=== PATIENT | female | born 1930 | race Caucasian/White ===

== ENCOUNTER 2016-03-15 14:21 | Emergency (ER) | payer MEDICARE, SELFPAY ==
[2016-03-15 14:23] VITALS: BMI 25.9
[2016-03-15] MEDS ORDERED: DILTIAZEM 25 MG/5 ML VIAL IV ONE (14:45)
--- NOTE | 2016-03-15 14:54 | EDPRACDOC ---
- General Information Information Source: Patient Mode of Arrival: Car - History of Present Illness Onset: 1100 HPI: Pt states sudden onset palpitations, numbness in chest, sob at 11 am today. Denies fever, vision changes, headache, cough, congestion, abd pain, n/v, changes in bowel or bladder, rash, leg swelling. Pt states hx afib but cant take meds due to low bp. Symptoms Started: Reports: Suddenly Relevant History: Reports: Arrhythmia Heart Rate (bpm): 129 Pulse is: Irregular, Rapid Worsens with: Reports: Nothing Associated signs & symptoms: Reports: Dyspnea Chest Pain Location: Reports: Substernal, Left Chest Pain Quality: Reports: Tightness Pain Radiation: Reports: Neck <Sheila Vance - Last Filed: 03/15/16 16:50> <Rose Marie Wilder - Last Filed: 03/15/16 17:17> - General Information Chief Complaint: Chest Pain Stated Complaint: NUMB FROM UPPER ABD TO UP IN CHEST & INTO ARMS Time Seen by Provider: 03/15/16 14:44 Home Medications: Home Medications CITALOPRAM (anti-depressant) [Celexa] 10 mg PO DAILY 04/11/12 Calcium Carb/Vit D3/Minerals [Calcium 600 + D Tablet] 1 tab PO DAILY 04/11/12 Ezetimibe [Zetia] 10 mg PO QHS 04/11/12 Zolpidem Tartrate [Ambien] 10 mg PO QHS 04/11/12 Rivaroxaban [Xarelto] 20 mg PO DAILY 12/20/13 Ergocalciferol (Vitamin D2) [Vitamin D] 400 mg PO BID 08/14/15 Esomeprazole Magnesium [Nexium] 40 mg PO DAILY 08/14/15 Metoclopramide HCl [Reglan] 5 mg PO BID 03/15/16 Nitrofurantoin [Macrodantin] 50 mg PO QHS 03/15/16 Allergies/Adverse Reactions: Allergies Allergy/AdvReac Type Severity Reaction Status Date / Time atorvastatin calcium Allergy Nausea/Vomi Verified 03/15/16 14:30 [From Lipitor] ting fenofibrate nanocrystallized Allergy Nausea/Vomi Verified 03/15/16 14:30 [From Tricor] ting fenofibrate,micronized Allergy Nausea/Vomi Verified 03/15/16 14:30 [From Tricor] ting Penicillins Allergy Rash-Genera Verified 03/15/16 14:30 lized pravastatin sodium Allergy Nausea/Vomi Verified 03/15/16 14:30 [From Pravachol] ting prednisone Allergy Nausea/Vomi Verified 03/15/16 14:30 ting rosuvastatin calcium Allergy Nausea/Vomi Verified 03/15/16 14:30 [From Crestor] ting simvastatin [From Zocor] Allergy Nausea/Vomi Verified 03/15/16 14:30 ting warfarin sodium Allergy Nausea/Vomi Verified 03/15/16 14:30 [From Coumadin] ting ED Past Medical History - History Reviewed Yes Nurses notes reviewed and agree except as marked - Patient Medical History Neurological History: Reports: Cerebrovascular Accident (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 Denies: Cancer Surgical History: Reports: Cardiac Catheterization, Tonsillectomy/Adnoidectomy - Family Medical History Reports: Hypertension, Cancer (Brother), Stroke (Mother, father), Cardiac Disorders (Brother) - Social Medical History Smoking Status: Never smoker Social History: Denies: Substance Use Disorder ETOH: None Substance Abuse: None <Sheila Vance - Last Filed: 03/15/16 16:50> EDM Review of Systems - Review of Systems Constitutional: No Symptoms Reported. negative: Fever, Chills, Weakness, Fatigue, Loss of Appetite Eyes: No Symptoms Reported. negative: Redness, Blurred Vision, Double Vision, Discharge, Pain, Light Sensitive, Photophobia Ears: No Symptoms Reported. negative: Pain, Hearing Loss, Drainage, Ear Pulling Throat: No Symptoms Reported. negative: Pain, Swelling Nose: No Symptoms Reported. negative: Congestion, Bleeding, Discharge, Injection, Swelling, Deformity, Ecchymosis, Tender, Abrasion, Laceration Mouth: No Symptoms Reported. negative: Pain, Drooling Respiratory: Shortness of Breath. negative: No Symptoms Reported, Barky Cough, Brassy Cough, Cough, Hemoptysis, Wheezing Cardiovascular: Chest Pain, Palpitations Gastrointestinal: No Symptoms Reported. negative: Pain, Constipation, Nausea, Vomiting, Diarrhea, Melena, Formula Intolerance Genitourinary: No Symptoms Reported. negative: Dysuria, Hematuria, Frequency, Discharge, Bleeding, Testicular Pain, Neurological: Numbness. negative: No Symptoms Reported, Dizziness, Gait Difficulty, Headache, Seizure, Speech Difficulty, Weakness Musculoskeletal: No Symptoms Reported. negative: Neck, Chestwall, Ribs, Back, Shoulder, Arm, Elbow, Forearm, Wrist, Hand, Pelvis, Hip, Femur, Knee, Leg, Ankle , Foot Integumentary: No Symptoms Reported. negative: Itching, Rash, Bruising, Wound Allergic/Immunologic: No Symptoms Reported. negative: Hives, Itching Hematologic: No Symptoms Reported. negative: Lymphadenopathy, Easy Bruising, Easy Bleeding Psychiatric: No Symptoms Reported. negative: Anxiety, Depression, Hallucinations, Insomnia, Suicidal <VanceSheila - Last Filed: 03/15/16 16:50> - Physical Exam Constitutional: Alert Oriented to: Time, Person, Place Last recorded Vital Signs: Last Vital Signs Temp 97.6 F 03/15/16 14:21 Pulse 98 03/15/16 14:21 Resp 18 03/15/16 14:21 BP 129/67 03/15/16 14:21 Pulse Ox 95 03/15/16 14:21 Oxygen Pulse Oxygen Saturation 95 O2 Device Room Air Oxygen Flow Rate Fraction of Inspired Oxygen ( FIO2) - HEENT Head: Normal ( normocephalic) Eye Exam: Normal (PERRL, EOMI, Sclera white) Oropharynx: Normal (Pharynx:Moist without exudate,Gums-no swelling) Tympanic Membrane: Normal ENT EAC: Normal Nose: No Symptoms Reported (septum midline) Neck: Normal (FROM, trachea at midline) - Respiratory/Cardiovascular Respiratory: Normal - CTA (BBS clear to auscultation without adventitious sounds ) Cardiovascular: Tachycardia, Irregular - GI Auscultation: Normal (NABS) Palpation: Normal (Soft,No rebound or guarding, non distended) Tenderness: Non tender - Musculoskeletal Back: Normal (Non-Tender) Extremities: Normal (Normal tone, Pulses 2+ No cyanosis or edema, FROM) - Integumentary Skin: Normal, Warm, Dry Lymphatics: Normal (no adenopathy) - Neurologic Memory Impaired: Normal Motor Function: Normal (Normal tone, Pulses 2+ No cyanosis or edema, FROM) Mood Description: Normal Perception: Normal <Sheila Vance - Last Filed: 03/15/16 16:50> - Physical Exam Last recorded Vital Signs: Last Vital Signs Temp 97.6 F 03/15/16 14:21 Pulse 129 H 03/15/16 16:51 Resp 16 03/15/16 15:03 BP 158/72 03/15/16 15:03 Pulse Ox 93 03/15/16 15:03 Oxygen Pulse Oxygen Saturation 93 O2 Device Room Air Oxygen Flow Rate Fraction of Inspired Oxygen ( FIO2) <Rose Marie Wilder - Last Filed: 03/15/16 17:17> - Differential Diagnosis Atrial fibrillation, Sinus tachycardia, Electrolyte disorder - Re-evaluation Re-evaluation 1 Re-evaluation Time: 16:50 (pt states palpitation improved but mild chest pressure and sob. ) - Results 03/15/16 14:41 03/15/16 14:41 03/15/16 16:41 Laboratory Results - last 24 hr 03/15/16 03/15/16 03/15/16 14:41 14:41 14:41 WBC 7.7 RBC 5.18 Hgb 14.6 Hct 44.3 MCV 85 MCH 28.2 MCHC 33.0 RDW 15.8 H Plt Count 235 MPV 8.0 Neut % (Auto) 62.4 Lymph % (Auto) 26.5 [place] % (Auto) 9.5 Eos % (Auto) 1.3 Baso % (Auto) 0.3 Absolute Neuts (auto) 4.77 Absolute Lymphs (auto) 2.00 PT 14.0 H INR 1.4 APTT 38.5 H Sodium 140 Potassium 4.1 Chloride 107 Carbon Dioxide 25 Anion Gap 12 BUN 21 H Creatinine 0.90 Estimated GFR (MDRD) 59 L Glucose 93 Calculated Osmolality 272 Calcium 9.0 Corrected Calcium 9.4 Total Bilirubin 0.7 AST 21 ALT 25 Alkaline Phosphatase 65 Troponin I < 0.01 [id number] Pept 4730 H Total Protein 6.8 Albumin 3.6 - EKG EKG #1 Initial EKG Time: 14:34 Rate: bpm: 129 [place]: LAD Rhythm: Afib (with RVR), PVCs Block: None ST: Nonsp Comparison: 01/01/16 - Diagnostic Imaging Chest Image interpreted by: Radiologist IMPRESSION: 1. No acute findings. 2. Stable hiatal hernia, moderate to large in size. 3. Stable scarring/fibrosis within each lung, bibasilar predominant. No new lung findings. No evidence of pneumonia. <Sheila Vance Cata - Last Filed: 03/15/16 16:50> - Re-evaluation Re-evaluation 3 Re-evaluation Time: 17:15 (PT REQUEST TRANSFER TO HIS CARD GROUP) HIGH VARIABILITY OF HR:50 TO 120. NO SIGNIF CHANGE IN BP. REC OBS. PT REQUEST HER CARD GROUP. - Results 03/15/16 14:41 03/15/16 14:41 WBC 7.7 xk/uL (3.8-10.8) 03/15/16 14:41 RBC 5.18 xM/uL (4.20-5.40) 03/15/16 14:41 Hgb 14.6 g/dL (12.0-16.0) 03/15/16 14:41 Hct 44.3 % (36-47) 03/15/16 14:41 MCV 85 fL (81-99) 03/15/16 14:41 MCH 28.2 pg (27-32) 03/15/16 14:41 MCHC 33.0 g/dl (33-36) 03/15/16 14:41 RDW 15.8 % (11.5-14.5) H 03/15/16 14:41 Plt Count 235 xk/uL (130-400) 03/15/16 14:41 MPV 8.0 fL (7.4-10.4) 03/15/16 14:41 Neut % (Auto) 62.4 % (45-76) 03/15/16 14:41 Lymph % (Auto) 26.5 % (17-44) 03/15/16 14:41 [place] % (Auto) 9.5 % (3-10) 03/15/16 14:41 Eos % (Auto) 1.3 % (0-5) 03/15/16 14:41 Baso % (Auto) 0.3 % (0-2) 03/15/16 14:41 Absolute Neuts (auto) 4.77 xk/uL (1.7-8.2) 03/15/16 14:41 Absolute Lymphs (auto) 2.00 xk/uL (0.65-4.75) 03/15/16 14:41 PT 14.0 SEC (9.2-11.2) H 03/15/16 14:41 INR 1.4 03/15/16 14:41 APTT 38.5 SEC (22-35) H 03/15/16 14:41 Sodium 140 mEq/L (137-146) 03/15/16 14:41 Potassium 4.1 mEq/L (3.5-5.1) 03/15/16 14:41 Chloride 107 mEq/L (98-107) 03/15/16 14:41 Carbon Dioxide 25 mMOL/L (22-33) 03/15/16 14:41 Anion Gap 12 mEq/L (8-16) 03/15/16 14:41 BUN 21 MG/DL (7-17) H 03/15/16 14:41 Creatinine 0.90 MG/DL (0.52-1.04) 03/15/16 14:41 Estimated GFR (MDRD) 59 mL/min (>=60) L 03/15/16 14:41 Glucose 93 mg/dL (70-99) 03/15/16 14:41 Calculated Osmolality 272 MOs/Kg (270-290) 03/15/16 14:41 Calcium 9.0 MG/DL (8.4-10.2) 03/15/16 14:41 Corrected Calcium 9.4 MG/DL (8.4-10.2) 03/15/16 14:41 Total Bilirubin 0.7 MG/DL (0.2-1.3) 03/15/16 14:41 AST 21 IU/L (14-36) 03/15/16 14:41 ALT 25 IU/L (9-52) 03/15/16 14:41 Alkaline Phosphatase 65 IU/L (55-165) 03/15/16 14:41 Troponin I < 0.01 ng/mL (<.04) 03/15/16 14:41 [id number] Pept 4730 pg/mL (0-1800) H 03/15/16 14:41 Total Protein 6.8 G/DL (6.3-8.2) 03/15/16 14:41 Albumin 3.6 G/DL (3.5-5.0) 03/15/16 14:41 Lab Results 03/15/16 03/15/16 03/15/16 14:41 14:41 14:41 WBC 7.7 RBC 5.18 Hgb 14.6 Hct 44.3 MCV 85 MCH 28.2 MCHC 33.0 RDW 15.8 H Plt Count 235 MPV 8.0 Neut % (Auto) 62.4 Lymph % (Auto) 26.5 [place] % (Auto) 9.5 Eos % (Auto) 1.3 Baso % (Auto) 0.3 Absolute Neuts (auto) 4.77 Absolute Lymphs (auto) 2.00 PT 14.0 H INR 1.4 APTT 38.5 H Sodium 140 Potassium 4.1 Chloride 107 Carbon Dioxide 25 Anion Gap 12 BUN 21 H Creatinine 0.90 Estimated GFR (MDRD) 59 L Glucose 93 Calculated Osmolality 272 Calcium 9.0 Corrected Calcium 9.4 Total Bilirubin 0.7 AST 21 ALT 25 Alkaline Phosphatase 65 Troponin I < 0.01 Rrz-R-Uwdquorxyov Pept 4730 H Total Protein 6.8 Albumin 3.6 <Rose Marie Wilder - Last Filed: 03/15/16 17:17> <Sheila Vance - Last Filed: 03/15/16 16:50> - Departure Disposition: Trans. to Other Hospital Education/Counseling Given To: Patient Education/Counseling Given Regarding: Diagnosis, Treatment, Prognosis Decision to Transfer Time: 17:14 - Physician Consulted Cardiology Time Called: 17:10 Provider Called: BRITTANY Time Professor Of Violin Returned Call: 17:15 (ACCEPTS IN TRANSFER) <Rose Marie Wilder N - Last Filed: 03/15/16 17:17> - Departure Condition: Stable Final Diagnosis: Atrial fibrillation with rapid ventricular response, Atrial fibrillation with slow ventricular response Instructions: Chest Pain (ED), A-fib (Atrial Fibrillation) (ED) Referrals: Francesca Huff NP [Primary Care Provider] - One Week Prescriptions: No Action Ezetimibe [Zetia] 10 mg PO QHS Calcium Carb/Vit D3/Minerals [Calcium 600 + D Tablet] 1 tab PO DAILY Zolpidem Tartrate [Ambien] 10 mg PO QHS CITALOPRAM (anti-depressant) [Celexa] 10 mg PO DAILY Rivaroxaban [Xarelto] 20 mg PO DAILY Esomeprazole Magnesium [Nexium] 40 mg PO DAILY Ergocalciferol (Vitamin D2) [Vitamin D] 400 mg PO BID Nitrofurantoin [Macrodantin] 50 mg PO QHS Metoclopramide HCl [Reglan] 5 mg PO BID Forms: ED Discharge Instructions
[2016-03-15 15:01] LABS: AUTOMATED BASOPHIL 0.3 % (0-2); AUTOMATED EOSINOPHIL 1.3 % (0-5); AUTOMATED LYMPH 26.5 % (17-44); AUTOMATED MONOCYTE 9.5 % (3-10); AUTOMATED NEUTROPHIL 62.4 % (45-76)
[2016-03-15 15:13] LABS: PARTIAL THROMB. TIME 38.5 SEC (22-35); PT-INR 1.4
[2016-03-15 15:15] LABS: BLOOD UREA NITROGEN 21 MG/DL (7-17); CALC CORRECTED 9.4 MG/DL (8.4-10.2); CALCULATED OSMOLALITY 272 MOs/Kg (270-290); CHLORIDE 107 mEq/L (98-107); GLUCOSE 93 mg/dL (70-99); SODIUM LEVEL 140 mEq/L (137-146); TOTAL PROTEIN 6.8 G/DL (6.3-8.2)
--- NOTE | 2016-03-15 15:40 | DIRPT ---
CLINICAL DATA: Chest pain EXAM: CHEST 2 VIEW COMPARISON: Chest x-ray dated 09/26/2014. FINDINGS: Heart size is upper normal, stable. Overall cardiomediastinal silhouette is stable in size and configuration. Hiatal hernia again appreciated, moderate to large in size. Scarring/fibrosis again noted within each lung, bibasilar predominant. No new lung findings. No evidence of pneumonia. No pleural effusion seen. No pneumothorax seen. Mild degenerative change noted within the scoliotic thoracolumbar spine. No acute - appearing osseous abnormality. IMPRESSION: 1. No acute findings. 2. Stable hiatal hernia, moderate to large in size. 3. Stable scarring/fibrosis within each lung, bibasilar predominant. No new lung findings. No evidence of pneumonia. Electronically Signed By: Aj Cabrera M.D. On: 03/15/2016 15:38
[2016-03-15] MEDS ORDERED: ASPIRIN (CHEWABLE) 81 MG TAB PO ONE (16:50)
[2016-03-15 18:15] VITALS: BP 129/74; PULSE 81; TEMP 98
== END 2016-03-15 18:10 | disposition home or self-care (01) ==
LOC: ED 14:21
DX: I48.91 Unspecified atrial fibrillation (principal); I10 Essential (primary) hypertension; E78.00 Pure hypercholesterolemia, unspecified; K21.9 Gastro-esophageal reflux disease without esophagitis; J44.9 Chronic obstructive pulmonary disease, unspecified; J45.909 Unspecified asthma, uncomplicated; Z79.899 Other long term (current) drug therapy; Z79.01 Long term (current) use of anticoagulants; R06.02 Shortness of breath
CPT/HCPCS: 36415; 71020; 80053; 83880; 84484; 85025; 85610; 85730; 93005; 96374; 99284; J3490